=== PATIENT | female | born 1955 | race Caucasian/White ===

== ENCOUNTER 2020-04-26 16:46 | Outpatient (CLI) | payer MEDICARE, SELFPAY ==
--- NOTE | ~2020-04-26 | MM_ITS ---
EXAMINATION: MM screening [facility] BI w joss HISTORY: Screening mammogram TECHNIQUE: Craniocaudal and mediolateral oblique 3-D tomosynthesis images were obtained and synthetic 2-D images were generated. CAD analysis was submitted and interpreted. COMPARISON: 01/25/2019, 01/25/2018, 01/12/2017 BREAST PARENCHYMAL COMPOSITION: There are scattered areas of fibroglandular density. FINDINGS: There is no evidence of suspicious mass, calcification, or architectural distortion to sugg est malignancy in either breast. There has been no suspicious interval change. IMPRESSION: 1. No mammographic evidence of malignancy. 2. Recommend routine screening mammography in one year. BI-RADS Category 1: Negative Reviewed, dictated and finalized at location A.
== END 2020-04-26 16:47 | disposition home or self-care (01) ==
LOC: ANHIMG 16:58
PROVIDERS: PCP Internal Medicine; Visit Provider Internal Medicine
DX: Z12.31 Encounter for screening mammogram for malignant neoplasm of breast (principal)
CPT/HCPCS: 77063; 77067

== ENCOUNTER 2020-08-06 07:51 | Outpatient (CLI) | payer MEDICARE, SELFPAY ==
--- NOTE | 2020-08-06 08:45 | ECG_ITS ---
Measurements Intervals [place] Rate: 59 P: 9 MO: 143 QRS: 76 QRSD: 102 T: 28 QT: 430 QTc: 429 Interpretive Statements SINUS BRADYCARDIA INCOMPLETE RIGHT BUNDLE BRANCH BLOCK BASELINE ARTIFACT- II, III, AVR, AVL, AVF BORDERLINE ECG Electronically Signed On 08-06-2020 9:39:31 CDT by El Dela Cruz D.O.
[2020-08-06 09:27] LABS: Add Urine Microscopic? YES; Appearance Urine Clear (Clear); Basophils Percent Auto 0.4 % (0.2-1.2); Bilirubin Urine Negative (Negative); Blood Urine 1+ (Negative); Color Urine Colorless (Yellow); Eosinophils Absolute Auto 0.1 K/mm3 (0-0.3); Eosinophils Percent Auto 1.1 % (0-4.4); Glucose Urine UA Negative (Negative); Hematocrit 42.7 % (37.0-47.0); Hemoglobin 14.3 g/dL (12.0-15.0); Immature Granulocyte Absolute 0.05 K/mm3 (0.00-0.031); Immature Granulocyte Percent A 0.7 % (0-0.5); Ketones Urine Negative (Negative); Leukocyte Esterase Ur Negative LEU/UL (Negative); Lymphocytes Absolute Auto 2.07 K/mm3 (0.9-3.2); Lymphocytes Percent Auto 28.3 % (18.3-44.2); Mean Corpuscular HGB Conc 33.5 g/dl (32-36); Mean Corpuscular Hemoglobin 31.6 pg (26-34); Mean Corpuscular Volume 94.3 fl (80-100); Mean Platelet Volume 10.1 fl (7.4-10.4); Monocytes Absolute Auto 0.4 K/mm3 (0.1-0.6); Neutrophils Absolute Auto 4.6 K/mm3 (1.3-6.7); Neutrophils Percent Auto 63.5 % (45.5-73.1); Nitrate Urine Negative (Negative); Platelet Count Result 236 k/mm3 (150-375); Protein Urine Negative (Negative); Red Blood Count 4.53 M/mm3 (4.2-5.4); Red Cell Distribution Width 12.5 % (11.5-14.5); Urobilinogen Urine Negative mg/dL (<2.0); White Blood Count 7.3 K/mm3 (4.5-10.0)
[2020-08-06 09:29] LABS: Specific Grav Ur 1.004 (1.001-1.035)
[2020-08-06 09:32] LABS: Urine Cotinine NEGATIVE
[2020-08-06 09:35] LABS: Prothrombin Time 12.6 Seconds (11.1-14.7)
[2020-08-06 09:36] LABS: Partial Thromboplastin Time 26.6 SECONDS (22.3-36.8)
[2020-08-06 09:37] LABS: Albumin Level 4.3 g/dL (3.5-5.1); Anion Gap 4 mmol/L (8-16); Blood Urea Nitrogen 11 mg/dL (7-17); Calcium 9.8 mg/dL (8.4-10.2); Carbon Dioxide 34 mmol/L (22-30); Chloride 105 mmol/L (98-107); Estimated Glomerular Filt Rate > 60; Glucose 103 mg/dL (65-105); Potassium 5.1 mmol/L (3.4-5.0); Sodium 143 mmol/L (137-145)
[2020-08-06 09:40] LABS: Hemoglobin A1C 5.5 % (<5.7)
== END 2020-08-06 07:52 | disposition home or self-care (01) ==
LOC: ANHSURGERY 07:56
PROVIDERS: PCP Internal Medicine; Visit Provider Orthopaedic Surgery
DX: M17.10 Unilateral primary osteoarthritis, unspecified knee (principal); Z01.818 Encounter for other preprocedural examination; Z01.812 Encounter for preprocedural laboratory examination
CPT/HCPCS: 36415; 80048; 80307; 81001; 82040; 83036; 85025; 85610; 85730; 86850; 86900; 86901; 87081; 93005

== ENCOUNTER 2020-08-11 00:45 | Outpatient (CLI) | payer MEDICARE, SELFPAY ==
[2020-08-11 17:59] LABS: SARS-CoV-2 RNA PCR Negative
== END 2020-08-11 00:46 | disposition home or self-care (01) ==
LOC: ANHCOVIDDT 00:47
PROVIDERS: PCP Internal Medicine; Visit Provider Orthopaedic Surgery
DX: Z01.812 Encounter for preprocedural laboratory examination (principal); Z20.828 Contact with and (suspected) exposure to other viral communicable diseases
CPT/HCPCS: 87635; C9803; U0003

== ENCOUNTER 2020-08-15 14:07 | Observation (INO) | payer MEDICARE, SELFPAY ==
[2020-08-06 08:21] VITALS: BP 154/78; PULSE 68; RESP 18; TEMP 36.4; O2SAT 100
[2020-08-06 08:22] VITALS: BMI 21.4
[2020-08-14] VITALS (12 sets, daily range): BP systolic 106–138; BP diastolic 42–78; PULSE 53–75; RESP 10–18; TEMP 36.1–36.8; O2SAT 98–100
--- NOTE | 2020-08-14 07:18 | WPDHPUPDATE1 ---
History and Physical Update Update Date/Time: 08/14/20 07:18 History and Physical has been reviewed, including an updated exam of the patient. There are NO changes in the patient's condition. Risks, benefits, and alternatives have been discussed and questions answered. Patient agrees to proceed with procedure.
--- NOTE | 2020-08-14 08:06 | WPDANESEPPF ---
Anes - Initial Pre Proc Eval Procedure: Operation Date: 08/14/20 10:30 Proposed Procedures p Right Total Knee Arthroplasty - Mikey Begum MD Date/Time: 08/14/20 08:06 Surgeon: Mikey Begum MD Pre Op Diagnosis: Right Knee DJD Patient Data Age: 65 Gender: F Height: 1.56 m Weight: 52.4 kg Last Vital Signs Temp 36.4 C 08/06/20 08:21 Pulse 68 08/06/20 08:21 Resp 18 08/06/20 08:21 BP 154/78 H 08/06/20 08:21 Pulse Ox 100 08/06/20 08:21 Allergies Allergy/AdvReac Type Severity Reaction Status Date / Time No Known Allergies Allergy Verified 08/06/20 13:45 Home Medications Medication Instructions Recorded Confirmed Type alprazolam 0.25 mg tablet 0.25 mg PO TID PRN 07/02/20 08/06/20 History losartan 50 mg tablet 50 mg PO QAM 07/02/20 08/06/20 History chlorhexidine gluconate 4 % 1 applic TOPICAL ONCE #237 ml 07/03/20 08/06/20 Rx topical liquid aspirin [Aspirin Low Dose] 81 mg PO QAM 08/06/20 08/06/20 History calcium carbonate [Calcium 600] 600 mg PO BID 08/06/20 08/06/20 History cholecalciferol (vitamin D3) 50 mcg PO QAM 08/06/20 08/06/20 History zkbumuoa-cqd-rtcx-FA-lutein 1 tablet PO QAM 08/06/20 08/06/20 History [Multivitamin Women 50 Plus] Patient hx anesthesia problems: none Family hx anesthesia problems: none PMFSH Past Medical History Medical History (Updated 08/14/20 @ 08:05 by Arben Lay DO) Anxiety Depression DJD (degenerative joint disease) of knee Hypertension Osteoarthritis Right knee pain Surgical History Surgical History (Updated 08/14/20 @ 08:05 by Arben Lay DO) History of hysterectomy Social History Social History Smoking status: Never smoker Alcohol intake: never Substance use: never Living arrangements: alone Spiritual care concerns: No Anes - Eval Final PreProcedure Day of Procedure 08/14/20 08:06 Patient weight: normal Heart: regular rate and rhythm Lungs: clear to auscultation and normal air movement Airway: Mallampati scale class II Neurological: alert and oriented Last oral intake: >/= 8 hours ASA classification: II Emergent: no Anesthetic plan: proceed Anesthesia type and monitoring: general LMA and standard monitoring Informed Consent: The patient's anesthetic plan and its attendant risks and benefits were discussed with the patient/family/POA. Questions were solicited and answers provided to the satisfaction of the patient/family/POA.
--- NOTE | 2020-08-14 08:06 | WPDANESPNB ---
Anes - Peripheral Nerve Block Date/Time: 08/14/20 08:06 I have discussed with the patient/family/POA the placement of a peripheral nerve block for post-operative pain management, including associated risks, benefits, complications, and side effects. Alternative methods of post-operative analgesia were detailed. Questions were solicited and answers provided to the satisfaction of the patient/family/POA. Time-Out: A pre-procedural Time-Out was completed immediately before starting the procedure and confirmed: Patient Identification, Site, Procedure, Patient Position and the Availability of Requisite Equipment. Clinical Indications: Acute post-operative pain management requested by the operative surgeon. Nerve Block Insertion Note Anes-nerve block: femoral right Patient position: supine Skin prep: chlorhexidine Needle: 22 gauge, stimulating, insulated echogenic needle. Needle length: 80 mm Technique: nerve stimulation lost at (mA) (0.3) and ultrasound Injectate: bupivacaine 0.5% with epi 5 mcg/ml (30cc) Observations: tolerated well Complications: none Procedure start time:: 1011 Procedure end time:: 1014
[2020-08-14] MEDS: LACTATED RINGERS 1,000 ML 30 ML IV CONT ×2 (09:02→12:02)
[2020-08-14] MEDS: KETOROLAC 15 MG/ML VIAL (*BKC) IV PUSH (09:03)
[2020-08-14] MEDS: ACETAMINOPHEN 500 MG TABLET 1000 MG PO (09:03)
[2020-08-14] MEDS: TRANEXAMIC ACID 1,000MG/ISO100 1,000 MG/100 ML BAG 200 MG IVPB (09:03)
[2020-08-14] MEDS: ceFAZolin 2 GM/D5W 50 ML 2 GM/50 ML BAG IVPB ×2 (10:23→18:51)
[2020-08-14] MEDS: TRANEXAMIC ACID 1,000 MG/10 ML AMPUL 1000 MG IV PUSH (11:29)
--- NOTE | 2020-08-14 11:58 | PM.PROC ---
Procedure Note - Detailed Date of procedure: 08/14/20 Pre-op diagnosis: Right Knee DJD Post-op diagnosis: same Procedure performed: R TKA Description of procedure: THE RIGHT KNEE WAS PREPPED AND DRAPED IN THE STERILE FASHION. A MIDLINE SKIN INCISION WAS MADE. A MEDIAL PARAPATELLAR ARTHROTOMY WAS MADE. THE PATELLA WAS EVERTED. THERE WAS TRICOMPARTMENT DJD. THERE WAS MINIMAL PATELLA DJD. AN INTRAMEDULLARY PINA WAS PLACED IN THE FEMUR. A DISTAL FEMORAL CUT WAS MADE IN 5 DEGREES OF VALGUS REMOVING APPROXIMATELY 9 MM OF BONE FROM THE DISTAL FEMUR. THE FEMUR WAS SIZED TO 60. A 60 FEMORAL CUTTING BLOCK WAS PLACED IN 3 DEGREES OF EXTERNAL ROTATION AND IN ALIGNMENT WITH ROMEO'S LINE AND THE TRANSEPICONDYLAR AXIS. ANTERIOR POSTERIOR AND CHAMFER CUTS WERE MADE. THE CUTS WERE EXCELLENT. NEXT AN INTRAMEDULLARY CUTTING GUIDE WAS PLACED IN THE TIBIA. A TRANS TIBIAL CUT WAS MADE ALONG THE LONG AXIS OF THE TIBIA. APPROXIMATELY 10 MM OF BONE WAS REMOVED FROM THE HIGH SIDE OF THE TIBIA. THE TIBIA WAS THEN PLANED TO A SMOOTH SURFACE. POSTERIOR FEMORAL OSTEOPHYTES WERE REMOVED FROM THE FEMORAL CONDYLES. A 71 TIBIAL TRIAL WAS PLACED IN ALIGNMENT WITH THE 1/3 MEDIAL ASPECT OF THE TIBIAL TUBERCLE. THEN A 60 FEMORAL TRIAL COMPONENT WAS PLACED. BOTH HAD EXCELLENT FITS. EVENTUALLY A 10 MM POLYETHYLENE TRIAL COMPONENT WAS PLACED. THE KNEE WAS TAKEN THROUGH A RANGE OF MOTION. THE KNEE CAME OUT TO FULL EXTENSION. THERE WAS NO ABNORMAL TILT TO THE PATELLA. THERE WAS GOOD A/P AND VARUS/VALGUS STABILITY. THERE WAS NO EXCESSIVE ROLL BACK WITH FLEXION. THE TRIAL COMPONENTS WERE REMOVED. THEN A 60 FEMORAL COMPONENT AND 71 TIBIAL COMPONENT WITH A 10 CR POLYETHYLENE COMPONENT WERE CEMENTED INTO PLACE. THE KNEE WAS TAKEN THROUGH A ROM AGAIN AND FOUND TO BE STABLE WITH NO PATELLA TILT NO EXCESSIVE ROLL BACK WITH FLEXION AND GOOD STABILITY WITH COMPLETE AND FULL EXTENSION. THE KNEE WAS IRRIGATED WITH STERILE BETADINE AND WATER FOR ABOUT 3 MINUTES. THE BLEEDERS WERE CAUTERIZED. THE ARTHROTOMY WAS REPAIRED WITH NUMBER 1 VICRYL. THE SUB CUTANEOUS LAYER WITH 2-0 VICRYL AND THE SKIN WITH ERIN. THE WOUND WAS WASHED AND A STERILE DRESSING WAS APPLIED. PATIENT WAS EXTUBATED. Anesthesia: GETA Surgeon: Mikey Begum MD Estimated blood loss (mL): 100 Complications: No immediate complications Condition: stable Disposition: PACU
--- NOTE | 2020-08-14 12:19 | SUR.PHASEI ---
1210 xrays of right knee done.
[2020-08-14] MEDS: ONDANSETRON INJ 4 MG/2 ML VIAL IV PUSH (15:18)
[2020-08-14] MEDS: HYDROcodone/acetaminophen (*CRX) 5-325 MG TABLET 1 TAB PO (16:17)
[2020-08-14] MEDS: CELECOXIB 200 MG CAPSULE PO (18:51)
[2020-08-14] MEDS: DOCUSATE SODIUM 100 MG CAPSULE PO (18:51)
[2020-08-14] MEDS: CALCIUM CARBONATE (OSCAL) 500 MG TABLET PO (18:51)
[2020-08-14] MEDS: ASPIRIN 325 MG ENTERIC TABLET PO (20:38)
[2020-08-14] MEDS: FAMOTIDINE 20 MG TABLET PO (20:38)
--- NOTE | ~2020-08-15 | XR_ITS ---
XR knee RT 2V DATE: 08/14/2020 12:12 INDICATION: Right total knee replacement TECHNIQUE: AP and lateral views COMPARISON: 07/02/2020 bilateral knees FINDINGS: Skin madhu are noted anteriorly. There is subcutaneous and intra-articular emphysema asso ciated with right knee arthroplasty without patellar resurfacing. No fracture or dislocation. IMPRESSION: Postoperative change from right knee arthroplasty Reviewed, dictated and finalized at location A.
[2020-08-15 02:00] VITALS: BP 136/66; PULSE 61; RESP 16; TEMP 36.2; O2SAT 96
[2020-08-15] MEDS: ceFAZolin 2 GM/D5W 50 ML 2 GM/50 ML BAG IVPB ×2 (03:00→09:26)
[2020-08-15 05:50] VITALS: BP 115/53; PULSE 65; RESP 16; TEMP 36.3; O2SAT 99
[2020-08-15 06:29] LABS: Basophils Percent Auto 0.2 % (0.2-1.2); Hematocrit 31.6 % (37.0-47.0); Hemoglobin 10.8 g/dL (12.0-15.0); Immature Granulocyte Absolute 0.13 K/mm3 (0.00-0.031); Immature Granulocyte Percent A 0.8 % (0-0.5); Lymphocytes Absolute Auto 1.83 K/mm3 (0.9-3.2); Lymphocytes Percent Auto 11.1 % (18.3-44.2); Mean Corpuscular HGB Conc 34.2 g/dl (32-36); Mean Corpuscular Hemoglobin 31.7 pg (26-34); Mean Corpuscular Volume 92.7 fl (80-100); Mean Platelet Volume 10.2 fl (7.4-10.4); Monocytes Percent Auto 5.9 % (2.6-8.5); Neutrophils Absolute Auto 13.5 K/mm3 (1.3-6.7); Platelet Count Result 183 k/mm3 (150-375); Red Blood Count 3.41 M/mm3 (4.2-5.4); Red Cell Distribution Width 12.3 % (11.5-14.5); White Blood Count 16.5 K/mm3 (4.5-10.0)
[2020-08-15 06:43] LABS: Anion Gap 5 mmol/L (8-16); Blood Urea Nitrogen 13 mg/dL (7-17); Calcium 8.7 mg/dL (8.4-10.2); Carbon Dioxide 29 mmol/L (22-30); Chloride 98 mmol/L (98-107); Estimated CRCL calculation 47 ml/min; Estimated Glomerular Filt Rate > 60; Glucose 117 mg/dL (65-105); Potassium 4.4 mmol/L (3.4-5.0); Sodium 132 mmol/L (137-145)
[2020-08-15] MEDS: ONDANSETRON INJ 4 MG/2 ML VIAL IV PUSH ×2 (07:47→13:28)
[2020-08-15] MEDS: ALPRAZolam (*CRX) 0.25 MG TABLET PO (07:48)
[2020-08-15] MEDS: DOCUSATE SODIUM 100 MG CAPSULE PO (07:51)
[2020-08-15] MEDS: CALCIUM CARBONATE (OSCAL) 500 MG TABLET PO (07:51)
[2020-08-15] MEDS: ASPIRIN 325 MG ENTERIC TABLET PO ×2 (07:51→21:09)
[2020-08-15] MEDS: CELECOXIB 200 MG CAPSULE PO (07:51)
[2020-08-15] MEDS: LOSARTAN POTASSIUM 50 MG TABLET PO (07:52)
[2020-08-15] MEDS: FAMOTIDINE 20 MG TABLET PO ×2 (07:52→21:09)
--- NOTE | 2020-08-15 08:40 | WPDANESPN ---
Anes - Prog Note Post-Op Date/Time: 08/15/20 08:40 Cardiovascular status: normal Respiratory status: normal Airway patency: baseline Mental status: baseline Post-Op hydration status: normal Vital Signs: Last Vital Signs Temp 36.3 C L 08/15/20 05:50 Pulse 65 08/15/20 05:50 Resp 16 08/15/20 05:50 BP 115/53 L 08/15/20 05:50 Pulse Ox 99 08/15/20 05:50 Pain Score (VAS): 0 I/O: Intake & Output 08/14/20 08/15/20 08/15/20 23:59 07:59 15:59 Intake Total 420 200 Balance 420 200 Laboratory Tests 08/15/20 06:07 08/15/20 06:07 08/14/20 08/15/20 08/15/20 09:01 06:07 06:07 WBC 16.5 H RBC 3.41 L Hgb 10.8 L D Hct 31.6 L MCV 92.7 MCH 31.7 MCHC 34.2 RDW 12.3 Plt Count 183 MPV 10.2 Immature Gran % (Auto) 0.8 H Neut % (Auto) 82.0 H Lymph % (Auto) 11.1 L [place] % (Auto) 5.9 Eos % (Auto) 0.0 Baso % (Auto) 0.2 Lymph # (Auto) 1.83 [place] # (Auto) 1.0 H Eos # (Auto) 0.0 Baso # (Auto) 0.0 Abs Immat Gran (auto) 0.13 H Absolute Neuts (auto) 13.5 H Absolute Nucleated RBC 0.0 Nucleated RBC % 0.0 Sodium 132 L Potassium 4.4 Chloride 98 Carbon Dioxide 29 Anion Gap 5 L BUN 13 Creatinine 0.80 Estim Creat Clear Calc 47 Estimated GFR > 60 Glucose 117 H Calcium 8.7 Blood Type A Positive Antibody Screen Negative Post-procedural complaints: none Patient Feedback: Patient satisfied with anesthetic care.
[2020-08-15] MEDS: HYDROcodone/acetaminophen (*CRX) 5-325 MG TABLET 1 TAB PO ×2 (09:27→22:48)
[2020-08-15 10:00] VITALS: BP 97/50; PULSE 68; RESP 18; TEMP 36.9; O2SAT 100
[2020-08-15 10:15] VITALS: O2SAT 96
[2020-08-15] MEDS: MORPHINE SULFATE (*CRX) 4 MG/ML INJ IV PUSH (10:39)
--- NOTE | 2020-08-15 13:57 | PM.PNORT ---
Progress Note: A&P Additional Plan POD 1 WITH NIKOLE. WILL REVALUATE TMRW FOR DC Subjective Subjective Date/Time Seen: 08/15/20 13:57POD 1 BLOCK STILL WORKING. HAVING NAUSEA WHEN GETS UP OUT OF BED. NO CALF PAIN OR SOB OR CP Exam Extrem: Other: VSS AFEBRILE DRESSING DRY NV INTACT NEG HOMANS SIGN Objective Data Vital Signs Vital Signs: Vital Signs - 24 hr 08/14/20 14:15 08/14/20 15:15 08/14/20 22:00 Temperature 36.3 C L 36.3 C L 36.8 C Pulse Rate 53 L 58 L 65 Respiratory Rate 12 16 16 Blood Pressure 114/57 L 106/42 L 124/66 Pulse Oximetry 100 100 100 08/15/20 02:00 08/15/20 05:50 08/15/20 10:00 Temperature 36.2 C L 36.3 C L 36.9 C Pulse Rate 61 65 68 Respiratory Rate 16 16 18 Blood Pressure 136/66 115/53 L 97/50 L Pulse Oximetry 96 99 100 08/15/20 10:15 Temperature Pulse Rate Respiratory Rate Blood Pressure Pulse Oximetry 96 Intake/Output Intake/Output: Intake & Output 08/12/20 08/13/20 08/14/20 08/15/20 23:59 23:59 23:59 23:59 Intake Total 770 250 Balance 770 250 Meds/Results Medications: Active Medications Generic Name Dose Route Start Last Admin Trade Name Freq PRN Reason Stop Dose Admin Acetaminophen 1,000 mg 08/14/20 13:24 Tylenol Tablet PO Q6H PRN Mild Pain (1-3) Hydrocodone Bitart/Acetaminophen 1 tab 08/14/20 13:24 08/15/20 09:27 [place] 5-325 Mg PO 1 tab Q4H PRN Administration Moderate Pain (4-6) Alprazolam 0.25 mg 08/14/20 13:24 08/15/20 07:48 Xanax PO 0.25 mg TID PRN Administration Anxiety Aspirin 325 mg 08/14/20 21:00 08/15/20 07:51 Aspirin Ec PO 325 mg Q12HR RAFI Administration Calcium Carbonate 500 mg 08/14/20 17:00 08/15/20 07:51 Oscal 500 Mg PO 09/13/20 17:01 500 mg BID RAFI Administration Celecoxib 200 mg 08/14/20 17:00 08/15/20 07:51 Celebrex PO 200 mg BIDWM RAFI Administration Diphenhydramine HCl 25 mg 08/14/20 13:24 Benadryl Inj IV PUSH Q6H PRN Itching Docusate Sodium 100 mg 08/14/20 17:00 08/15/20 07:51 Colace Capsule PO 100 mg BID RAFI Administration Famotidine 20 mg 08/14/20 21:00 08/15/20 07:52 Pepcid PO 20 mg Q12HR RAFI Administration Losartan Potassium 50 mg 08/15/20 09:00 08/15/20 07:52 Cozaar PO 50 mg QAM RAFI Administration Morphine Sulfate 4 mg 08/14/20 13:24 08/15/20 10:39 Morphine Sulfate Inj (*Crx) IV PUSH 4 mg Q2H PRN Administration Breakthrough pain rated 7-10 Naloxone HCl 0.1 mg 08/14/20 13:24 Narcan IV PUSH Q2M PRN Opiate Reversal Ondansetron HCl 4 mg 08/14/20 15:07 08/15/20 13:28 Zofran Inj IV PUSH 4 mg Q4H PRN Administration Nausea And Vomiting Radiology Results: ITS Impressions Knee X-Ray 08/14/20 12:27 IMPRESSION: Postoperative change from right knee arthroplasty Labs Labs: Laboratory Results - last 24 hr 08/15/20 08/15/20 06:07 06:07 WBC 16.5 H RBC 3.41 L Hgb 10.8 L D Hct 31.6 L MCV 92.7 MCH 31.7 MCHC 34.2 RDW 12.3 Plt Count 183 MPV 10.2 Immature Gran % (Auto) 0.8 H Neut % (Auto) 82.0 H Lymph % (Auto) 11.1 L [place] % (Auto) 5.9 Eos % (Auto) 0.0 Baso % (Auto) 0.2 Lymph # (Auto) 1.83 [place] # (Auto) 1.0 H Eos # (Auto) 0.0 Baso # (Auto) 0.0 Abs Immat Gran (auto) 0.13 H Absolute Neuts (auto) 13.5 H Absolute Nucleated RBC 0.0 Nucleated RBC % 0.0 Sodium 132 L Potassium 4.4 Chloride 98 Carbon Dioxide 29 Anion Gap 5 L BUN 13 Creatinine 0.80 Estim Creat Clear Calc 47 Estimated GFR > 60 Glucose 117 H Calcium 8.7
[2020-08-15 14:00] VITALS: BP 127/58; PULSE 62; RESP 18; TEMP 36.7; O2SAT 100
[2020-08-15] MEDS: DEXTROSE 5%/0.45% SOD CHL 1,000 ML 125 ML IV CONT (16:57)
[2020-08-15 22:00] VITALS: BP 105/50; PULSE 71; RESP 16; TEMP 37.1; O2SAT 100
[2020-08-16 02:00] VITALS: BP 132/49; PULSE 65; RESP 16; TEMP 36.8; O2SAT 98
[2020-08-16] MEDS: DEXTROSE 5%/0.45% SOD CHL 1,000 ML 125 ML IV CONT (02:30)
[2020-08-16] MEDS: ONDANSETRON INJ 4 MG/2 ML VIAL IV PUSH ×2 (05:23→10:41)
[2020-08-16] MEDS: HYDROcodone/acetaminophen (*CRX) 5-325 MG TABLET 1 TAB PO (05:43)
[2020-08-16 06:00] VITALS: BP 130/67; PULSE 63; RESP 16; TEMP 36.8; O2SAT 99
--- NOTE | 2020-08-16 09:08 | PM.PNORT ---
Progress Note: A&P Assessment and Plan (1) DJD (degenerative joint disease) of knee: Qualifiers: Osteoarthritis type: primary Laterality: bilateral Qualified Code(s): M17.0 - Bilateral primary osteoarthritis of knee Code(s): M17.10 - Unilateral primary osteoarthritis, unspecified knee Status: Acute Assessment and Plan: POD #1: RIGHT TKA Continue PT/OT. WBAT. Walker. HIGH FALL RISK. Continue pain control. Ice Knee. No pillows under knee. DVT prophylaxis. Incentive spirometry. SCDs. Dressing changed today. Dispo: Home with home health pending progress with PT/OT. (2) Nausea after anesthesia: Qualifiers: Encounter type: initial encounter Qualified Code(s): T88.59XA - Other complications of anesthesia, initial encounter; R11.0 - Nausea Code(s): T88.59XA - Other complications of anesthesia, initial encounter; R11.0 - Nausea Status: Acute Assessment and Plan: Patient with nausea post anesthesia. Mild improvement today. Continue antiemetic. Changes to pain medication regimen as well due to possible concerns of nausea from [place]. (3) Anxiety: Code(s): F41.9 - Anxiety disorder, unspecified Status: Acute Assessment and Plan: Patient currently on alprazolam TID for anxiety. Also complaining of muscle spasms. Discussed with Dr. Begum. Decrease PRN xanax at this time. Add valium for muscle spasms. Subjective Subjective Date/Time Seen: 08/16/20 09:08 Post Op day: 2 Principal diagnosis: Right TKA Interval history: POD #2 RIght TKA Complaints of continued nausea. No vomiting today. Feels she is having difficulty tolerating current pain medication in regards to nausea. Now able to move leg better. Complaints of spasming as well. Review of Systems Review of Systems: All systems reviewed & are unremarkable except as noted in HPI and below Constitutional: Constitutional: Reports as per HPI, Denies chills, Denies fatigue, Denies fever(s) and Denies weakness Respiratory: Respiratory: Denies cough and Denies wheezing Gastrointestinal: Gastrointestinal: Denies constipation, Denies diarrhea, Reports nausea and Denies vomiting Genitourinary: Genitourinary: Denies dysuria Musculoskeletal: Musculoskeletal: Reports arthralgias (right knee ), Reports joint swelling (right knee ), Denies numbness and Denies tingling Integumentary/Breasts: Skin/Breast: Reports other (incision right knee c/d/i. ) Exam Const: General: comfortable and no acute distress Resp: Effort & Inspection: normal respiratory effort Cardio: Rate: regular rate Rhythm: regular rhythm GI: GI Palp: Yes Soft to palpation, No Tenderness to palpation present (GI) and No Guarding due to palpation present (GI) Skin: Wounds: wounds noted Other: Incision c/d/i. No surrounding redness/warmth. No hematoma. Mild ecchymosis. No wound dehiscence Neuro: Cognition (Neuro): normal cognition Extrem: Right upper extremity: normal to inspection, full ROM and normal capillary refill Left upper extremity: normal to inspection, full ROM and normal capillary refill Right lower extremity: normal to inspection, full ROM (ROM limited due to recent surgical intervention ), knee Details: tenderness (diffuse, mild ) and swelling (diffuse, mild ), lower leg (Negative Mando's Sign ), ankle (+ankle dorsiflexion/plantarflexion ) and foot (2+ pedal pulses. Sensation intact to light touch. ) Left lower extremity: normal to inspection Psych: Mental Status: mental status grossly normal Objective Data Vital Signs Vital Signs: Vital Signs - 24 hr 08/15/20 10:00 08/15/20 10:15 08/15/20 14:00 Temperature 36.9 C 36.7 C Pulse Rate 68 62 Respiratory Rate 18 18 Blood Pressure 97/50 L 127/58 L Pulse Oximetry 100 96 100 08/15/20 22:00 08/16/20 02:00 08/16/20 06:00 Temperature 37.1 C 36.8 C 36.8 C Pulse Rate 71 65 63 Respiratory Rate 16 16 16 Blood Pressure 105/50 L 132/49 L 130/67 Pulse Oximetry 100
[2020-08-16 10:00] VITALS: BP 131/59; PULSE 68; RESP 17; TEMP 36.9; O2SAT 98
[2020-08-16] MEDS: oxyCODONE/ACETAMINOPHEN (*CRX) 5-325 MG TABLET 1 TABLET PO ×2 (10:41→16:04)
[2020-08-16] MEDS: diazePAM (*CRX) 5 MG TABLET PO (10:41)
--- NOTE | 2020-09-10 08:06 | PM.DS ---
DS: Admitting Diagnosis Admitting Diagnosis Admitting Diagnosis: Right Knee DJD DS: Discharge Diagnosis Discharge Diagnosis (1) DJD (degenerative joint disease) of knee: Qualifiers: Osteoarthritis type: primary Laterality: bilateral Qualified Code(s): M17.0 - Bilateral primary osteoarthritis of knee Code(s): M17.10 - Unilateral primary osteoarthritis, unspecified knee Status: Acute Assessment and Plan: POD #2: RIGHT TKA Continue PT/OT. WBAT. Walker. HIGH FALL RISK. Continue pain control. Ice Knee. No pillows under knee. DVT prophylaxis. Incentive spirometry. SCDs. Dressing changed today. Dispo: Home with home health pending progress with PT/OT. (2) Nausea after anesthesia: Qualifiers: Encounter type: initial encounter Qualified Code(s): T88.59XA - Other complications of anesthesia, initial encounter; R11.0 - Nausea Code(s): T88.59XA - Other complications of anesthesia, initial encounter; R11.0 - Nausea Status: Acute Assessment and Plan: Patient with nausea post anesthesia. Mild improvement today. Continue antiemetic. Changes to pain medication regimen as well due to possible concerns of nausea from [place]. (3) Anxiety: Code(s): F41.9 - Anxiety disorder, unspecified Status: Acute Assessment and Plan: Patient currently on alprazolam TID for anxiety. Also complaining of muscle spasms. Discussed with Dr. Begum. Decrease PRN xanax at this time. Add valium for muscle spasms. DS: Summary Hospital Course Reason for hospitalization: Right Knee DJD Hospital Course: 65-year-old female admitted status post right total knee replacement for postoperative medical management, pain control and physical/occupational therapy. The patient progressed well with PT and OT and was deemed safe to be discharged home with home health. She did have a bout of nausea postoperatively which is controlled with antiemetics. She also had some muscle spasming requiring Valium. We did decrease her Xanax in the interim. She will follow up in our office outpatient. We will transition her to outpatient physical therapy at that time. Her dressing was changed prior to discharge. She was sent home upon additional dressing which will be changed in 5 days by the home health RN. Her madhu were removed on the 14th day after surgery and Steri-Strips will be placed. The patient verbalized understanding and agrees with discharge at this time. Status at Discharge Cognitive/behavioral status at discharge: Stable Functional status at discharge: uses cane/walker Overall status at discharge: patient is progressing back to baseline Time Spent with Patient Time attestation: Total time spent providing and/or coordinating discharge services: Exam Const: General: comfortable and no acute distress Resp: Effort & Inspection: normal respiratory effort Cardio: Rate: regular rate Rhythm: regular rhythm GI: GI Palp: Yes Soft to palpation, No Tenderness to palpation present (GI) and No Guarding due to palpation present (GI) Skin: Wounds: wounds noted Other: Incision c/d/i. No surrounding redness/warmth. No hematoma. Mild ecchymosis. No wound dehiscence Neuro: Cognition (Neuro): normal cognition Extrem: Right upper extremity: normal to inspection, full ROM and normal capillary refill Left upper extremity: normal to inspection, full ROM and normal capillary refill Right lower extremity: normal to inspection, full ROM (ROM limited due to recent surgical intervention ), knee Details: tenderness (diffuse, mild ) and swelling (diffuse, mild ), lower leg (Negative Mando's Sign ), ankle (+ankle dorsiflexion/plantarflexion ) and foot (2+ pedal pulses. Sensation intact to light touch. ) Left lower extremity: normal to inspection Psych: Mental Status: mental status grossly normal Discharge Plan Discharge Attending physician on discharge: Mikey Begum Consulting providers: Damian Lewis
== END 2020-08-16 16:23 | disposition home health service (06) ==
LOC: ANHSURGERY 14:09 → ANH2MED 14:10
PROVIDERS: Admitting Provider Orthopaedic Surgery; PCP Internal Medicine; Visit Provider Orthopaedic Surgery
PROC: (CPT 27447; principal; 2020-08-14 10:30)
DX: M17.11 Unilateral primary osteoarthritis, right knee (principal); G89.18 Other acute postprocedural pain; I10 Essential (primary) hypertension; F41.9 Anxiety disorder, unspecified
CPT/HCPCS: 27447; 64447; 36415; 73560; 80048; 85025; 86850; 86900; 86901; 97110; 97116; 97161; 97165; 97530; 97535; A9270; C1713; C1776; G0378; J0171; J0690; J1100; J1885; J2250; J2270; J2370; J2405; J2704; J2795; J3010; J7120

== ENCOUNTER 2020-09-26 10:00 | Outpatient (RCR) | payer MEDICARE, SELFPAY ==
--- NOTE | 2020-09-05 09:59 | PTOPEVAL ---
PHYSICAL THERAPY EVALUATION and PLAN OF CARE Thank you for referring Neela Montalvo to [facility].? Neela is scheduled to be seen for physical therapy? 2x/week for 4 weeks. Please review, sign, date and return this plan of care SHADI. I agree with and certify that the following plan of care is medically necessary. Referring Physician Date Admitting Provider: Attending Provider: Mikey Begum MD Referring Provider: *PT Outpatient Evaluation Start: 09/05/20 08:30 Freq: Status: Active Protocol: Document 09/05/20 08:30 GIANNA (Rec: 09/05/20 09:58 GIANNA [id number]) Therapy Assessment Status Assessment Status Assessment Status Evaluation Outpatient Past Medical History Past Medical History Source of Past Medical History Recalled from Previous Visit, Confirmed with Patient/Family Neurological History Hx Neurological Disorders No Significant History Cardiovascular History Hx Hypertension Yes Hx Other Cardiac Disorders Yes: DENIES CARDIAC SYMPTOMS - WALKS 1-3 MILES DAILY Respiratory History Hx Respiratory Disorders No Significant History Gastrointestinal History Hx Other Gastrointestinal Disorders Yes: NORMAL COLONOSCOPY 2018 Genitourinary History Hx Bladder Surgery Yes: BLADDER PROLAPSE REPAIR WITH HYSTERECTOMY 07/14/2012 Musculoskeletal History Hx Arthritis Yes: KNEES, NECK Hx Joint Replacement Yes: R TKA 08/14/2020 Hematological History Hx Hematological Disorders No Significant History Endocrine History Hx Endocrine Disorders No Significant History HEENT History Hx Other HEENT Disorders Yes: GLASSES/CONTACTS Integumentary History Hx Shingles Yes: MAY 2012 RT SHOULDER/ NECK Reproductive History Hx Hysterectomy Yes: 07/14/2012 Hx Other Reproductive Disorders Yes: NORMAL MAMMOGRAM 2019 Psychosocial History Hx Anxiety Yes Hx Depression Yes Hx Recent Lifestyle Changes Yes: SPOUSE PASSED OCT 2019 Pain History History of Any Previous or Ongoing No Significant History Instance of Pain Anesthesia History Hx Anesthesia Reactions No Significant History Evaluation Information Problem Diagnosis s/p R TKA Onset 08/14/2020 Subjective Information Hospitalized - 2 nights - Query Text:As Reported By Patient/ rough reaction to anesthia and Family pain meds. Daughter home afterwards - then home health. Doesn't have CPM anymore. Sleeping - does well until 3 a
--- NOTE | 2020-09-26 16:25 | PTOPEVAL ---
PHYSICAL THERAPY DISCHARGE SUMMARY Thank you for referring Neela Montalvo to [facility].? Neela was seen in PT x 8 visits. She has met all goals set with exception of full knee extension. She is to continue with her HEP and emphasize full knee extension with stance aspect of gait. I agree with Neela's discharge from physical therapy. Referring Physician Date Admitting Provider: Attending Provider: Mikey Begum MD Referring Provider: *PT Outpatient Evaluation Start: 09/05/20 08:30 Freq: Status: Active Protocol: Document 09/26/20 09:58 GIANNA (Rec: 09/26/20 11:10 GIANNA [id number]) Therapy Assessment Status Assessment Status Assessment Status Discharge Evaluation Information Problem Subjective Information Neela reports that her knee is Query Text:As Reported By Patient/ feeling good - some muscular Family discomforts. Ready to return back to some of her work next week. No problem with stair ambulation at home. Limiting outside mobility due to COVID situation in the community. Pain Assessment Timing of Pain Assessment Timing of Pain Assessment Assessment Pain Scale Pain Scale Used Numeric (1 - 10) Self Report Pain Assessment Right Knee(s) Reported Pain Level 0 Lowest Pain Intensity 0 Greatest Pain Intensity 1 Pain Score Pain Score 0: Self Report Lower Extremity Range of Motion Knee Range of Motion Right Knee Flexion Range of Motion - Active 135 Knee Extension Range of Motion - Active 2 Query Text: Lower Extremity Muscle Strength Testing Hip Strength Right Hip Flexion Strength 5 Normal Hip Extension Strength 5 Normal Hip Abduction Strength 4+ Good + Hip Medial Rotation Strength 5 Normal Hip Lateral Rotation Strength 5 Normal Knee Strength Right Knee Flexion Strength 5 Normal Knee Extension Strength 5 Normal Palpation Assessment Palpation Palpation Good patellar and incisional mobility present. Extremity Circumference Assessment Circumference Assessment Location Right Body Part Knee Circumference Comments 35.5 cm - mid patellar Balance Assessment Time Up Go (TUG) Assistive Devices None Comments 8.09 sec Gait Assessment Gait Pattern Assessment Other Gait Observations improved R knee extension in stance phase, symmetrical step length, stance and swing phases Stair Climbing Assessment Stair Climbing Assessment Stair C
== END 2020-11-05 15:25 | disposition home or self-care (01) ==
LOC: ANHHIPT 10:00
PROVIDERS: PCP Internal Medicine; Visit Provider Orthopaedic Surgery
DX: Z47.1 Aftercare following joint replacement surgery (principal); Z96.651 Presence of right artificial knee joint
CPT/HCPCS: 97110; 97161

== ENCOUNTER 2022-08-09 07:36 | Outpatient (CLI) | payer MEDICARE, SELFPAY ==
--- NOTE | ~2022-08-09 | MM_ITS ---
EXAMINATION: MM screening [facility] BI w joss HISTORY: Screening mammogram TECHNIQUE: Craniocaudal and mediolateral oblique 3-D tomosynthesis images were obtained and synthetic 2-D images were generated. CAD analysis was submitted and interpreted. COMPARISON: 04/26/2020, 01/25/2019, 01/15/2018 BREAST PARENCHYMAL COMPOSITION: There are scattered areas of fibroglandular density. FINDINGS: There is no suspicious mass, calcification, or architectural distortion to suggest malignan cy in either breast. There has been no suspicious interval change. IMPRESSION: 1. No mammographic evidence of malignancy. 2. Recommend routine screening mammography in one year. BI-RADS Category 1: Negative Reviewed, dictated and finalized at location A.
== END 2022-08-09 07:37 | disposition home or self-care (01) ==
PROVIDERS: PCP Physician Assistant Medical; Visit Provider Physician Assistant Medical
DX: Z12.31 Encounter for screening mammogram for malignant neoplasm of breast (principal)
CPT/HCPCS: 77063; 77067

== ENCOUNTER 2023-08-27 14:00 | Outpatient (CLI) | payer MEDICARE, SELFPAY ==
--- NOTE | ~2023-08-27 | MM_ITS ---
EXAMINATION: MM screening [facility] BI w joss HISTORY: Screening TECHNIQUE: Craniocaudal and mediolateral oblique 3-D tomosynthesis images were obtained and synthetic 2-D images were generated. CAD analysis was submitted and interpreted. COMPARISON: Comparison to multiple prior studies sequentially, with oldest reviewed study dated 12/28/2015. BREAST PARENCHYMAL COMPOSITION: There are scattered areas of fibroglandular density. FINDINGS: There is no evidence of suspicious mass, calcification, or architectural distortion to sugg est malignancy in either breast. There has been no suspicious interval change. IMPRESSION: 1. No mammographic evidence of malignancy. 2. Recommend routine screening mammography in one year. BI-RADS Category 1: Negative Reviewed, dictated and finalized at location A.
== END 2023-08-27 14:01 | disposition home or self-care (01) ==
PROVIDERS: PCP Physician Assistant Medical; Visit Provider Physician Assistant Medical
DX: Z12.31 Encounter for screening mammogram for malignant neoplasm of breast (principal)
CPT/HCPCS: 77063; 77067

== ENCOUNTER 2023-10-05 12:17 | Outpatient (CLI) | payer MEDICARE, SELFPAY ==
--- NOTE | 2023-10-05 12:31 | ECG_ITS ---
Measurements Intervals [place] Rate: 58 P: 49 CO: 143 QRS: -18 QRSD: 104 T: 30 QT: 415 QTc: 409 Interpretive Statements SINUS BRADYCARDIA INCOMPLETE RIGHT BUNDLE BRANCH BLOCK BASELINE ARTIFACT- I, II, III, AVF BORDERLINE ECG COMPARED TO ECG 08/06/2020 09:21:50 NO SIGNIFICANT CHANGES Electronically Signed On 10-05-2023 13:04:41 SENIOR COUNSEL by El Dela Cruz D.O.
[2023-10-05 13:14] LABS: Appearance Urine Clear (Clear); Bilirubin Urine Negative (Negative); Blood Urine Negative (Negative); Color Urine Yellow (Yellow); Glucose Urine UA Negative (Negative); Ketones Urine Negative (Negative); Leukocyte Esterase Ur Negative LEU/UL (Negative); Nitrate Urine Negative (Negative); Protein Urine Negative (Negative); Specific Grav Ur 1.013 (1.001-1.035); Urobilinogen Urine 0.2 mg/dL (<2.0); pH Urine 7.5 (5.0-9.0)
[2023-10-05 13:42] LABS: Add Urine Microscopic? NO
== END 2023-10-05 12:18 | disposition home or self-care (01) ==
PROVIDERS: PCP Physician Assistant Medical; Visit Provider Orthopaedic Surgery
DX: M17.12 Unilateral primary osteoarthritis, left knee (principal); I10 Essential (primary) hypertension; I45.10 Unspecified right bundle-branch block
CPT/HCPCS: 81003; 93005

== ENCOUNTER 2023-11-19 13:44 | Outpatient (CLI) | payer MEDICARE, SELFPAY ==
[2023-11-19 15:31] LABS: Basophils Percent Auto 0.3 % (0.2-1.2); Eosinophils Absolute Auto 0.1 K/mm3 (0-0.3); Eosinophils Percent Auto 1.4 % (0-4.4); Hematocrit 39.9 % (37.0-47.0); Hemoglobin 12.9 g/dL (12.0-15.0); Immature Granulocyte Absolute 0.01 K/mm3 (0.00-0.031); Immature Granulocyte Percent A 0.1 % (0-0.5); Lymphocytes Absolute Auto 2.81 K/mm3 (0.9-3.2); Lymphocytes Percent Auto 40.5 % (18.3-44.2); Mean Corpuscular HGB Conc 32.3 g/dl (32-36); Mean Corpuscular Hemoglobin 31.5 pg (26-34); Mean Corpuscular Volume 97.6 fl (80-100); Mean Platelet Volume 9.7 fl (7.4-10.4); Monocytes Absolute Auto 0.4 K/mm3 (0.1-0.6); Monocytes Percent Auto 6.1 % (2.6-8.5); Neutrophils Absolute Auto 3.6 K/mm3 (1.3-6.7); Neutrophils Percent Auto 51.6 % (45.5-73.1); Platelet Count Result 238 k/mm3 (150-375); Red Blood Count 4.09 M/mm3 (4.2-5.4); Red Cell Distribution Width 12.6 % (11.5-14.5); White Blood Count 6.9 K/mm3 (4.5-10.0)
[2023-11-19 15:43] LABS: Albumin Level 4.2 g/dL (3.5-5.1); Anion Gap 9 mmol/L (8-16); Blood Urea Nitrogen 19 mg/dL (7-17); Calcium 9.1 mg/dL (8.4-10.2); Carbon Dioxide 29 mmol/L (22-30); Chloride 103 mmol/L (98-107); Estimated Glomerular Filt Rate > 60; Glucose 113 mg/dL (65-110); Sodium 141 mmol/L (137-145)
[2023-11-19 15:46] LABS: INR 0.9; Prothrombin Time 12.3 Seconds (11.1-14.7)
[2023-11-19 15:47] LABS: Partial Thromboplastin Time 26.3 SECONDS (22.3-36.8)
[2023-11-19 15:49] LABS: Appearance Urine Clear (Clear); Bacteria Urine None Seen /hpf; Bilirubin Urine Negative (Negative); Blood Urine Negative (Negative); Color Urine Yellow (Yellow); Glucose Urine UA Negative (Negative); Ketones Urine Negative (Negative); Leukocyte Esterase Ur Trace LEU/UL (Negative); Nitrate Urine Negative (Negative); Non Pathogenic Casts 0-2; Protein Urine Negative (Negative); RBC Urine 0-2 /hpf (0-2); Specific Grav Ur 1.007 (1.001-1.035); Squamous Epithelial Cell Urine None seen /hpf (Few); Urobilinogen Urine 0.2 mg/dL (<2.0); WBC Urine 0-5 /hpf
[2023-11-19 15:56] LABS: Add Urine Microscopic? YES
[2023-11-19 17:26] LABS: Hemoglobin A1C 5.6 % (<5.7)
[2023-11-19 17:49] LABS: Urine Cotinine NEGATIVE
== END 2023-11-19 13:45 | disposition home or self-care (01) ==
LOC: ANHSURGERY 13:48
PROVIDERS: PCP Physician Assistant Medical; Visit Provider Orthopaedic Surgery
DX: M17.12 Unilateral primary osteoarthritis, left knee (principal); Z01.818 Encounter for other preprocedural examination
CPT/HCPCS: 80048; 80307; 81001; 82040; 83036; 85025; 85610; 85730; 86850; 86900; 86901; 87081

== ENCOUNTER 2023-12-02 04:00 | Day surgery (SDC) | payer MEDICARE, SELFPAY ==
[2023-11-19 14:16] VITALS: BP 123/59; PULSE 63; RESP 16; TEMP 37.2; O2SAT 100; BMI 22.9
--- NOTE | 2023-11-19 14:35 | PC.NURSE ---
Addendum entered by Alexsandra Beck RN 11/19/23 14:57: HOLD IBUPROFEN PER DR GAYTAN. PT RELAYS UNDERSTANDING. Original Note: Report to the Outpatient Waiting Room, entrance under the green pavilion located off [facility], at time _6:00AM on date __12/02/23 . Planned Procedure Time: __7:30AM . Time changes happen often and if your time is changed the preop area will call you the afternoon before. - You and your visitor will be asked to self-screen and do not enter if you have any COVID symptoms. - A mask is optional within the hospital at this time. Patients may have clear liquids (water, carbonated beverages, clear teas, apple juice) until 3 hours prior to surgery with a maximum of 20 ounces. - No food from midnight until time of surgery. Take the following medications with a SIP of water the morning of surgery: __ALPRAZOLAM NEEDED, AMOXICILLIN DO NOT STOP ANY OF YOUR OTHER PRESCRIPTION MEDICATIONS PRIOR TO SURGERY ?EXCEPT THE FOLLOWING Medications to discontinue per physician __HOLD ASPIRIN AND VITAMINS/SUPPLEMENTS PER DR GAYTAN Please no make-up, nail kazakh, hairspray, perfume, deodorant, or body powder the day of surgery. No jewelry (including any body piercings) or valuables the day of surgery, leave them at home. Please take a shower or bath the night before, or the morning of, surgery with an antibacterial soap. Wear comfortable, loose fitting clothing. Children are encouraged to wear pajamas. - Jewelry must be removed prior to entering the operating room. Rings and piercings that are not removed may be cut off. - The hospital will not accept responsibility for valuables. - Please leave all valuables, including medications, at home the day of surgery. If you are going home after surgery, a licensed crew truck driver must drive you home. - NO public transportation without another adult if you receive anesthesia. - We recommend that an adult stay with you for 24 hours following discharge. - We also recommend that you do not drive, make important decision, drink alcoholic beverages, or take any drugs that were not prescribed by your health care provider for at least 24 hours after your discharge time. Follow any additional instructions given to you from your surgeon. If you or anyone in your household have experienced Covid symptoms in the past week, please notify your surgeon or the nurse liaison at the phone number below for possible testing. Telephone instructions given to _PATIENT and asked if any additional questions and then verbalized understanding. Patient advised to call surgeon office or pre surgery nurse liaison [phone] if any additional questions.
--- NOTE | 2023-12-01 13:47 | WPDANESEPPF ---
Anes - Initial Pre Proc Eval Procedure: Operation Date: 12/02/23 07:30 Proposed Procedures p Left Total Knee Arthroplasty - Mikey Begum MD Date/Time: 12/01/23 13:47 Surgeon: Mikey Begum MD Pre Op Diagnosis: Left Knee DJD Patient Data Age: 68 Gender: F Height: 1.56 m Weight: 56 kg Last Vital Signs Temp 37.2 C 11/19/23 14:16 Pulse 63 11/19/23 14:16 Resp 16 11/19/23 14:16 BP 123/59 L 11/19/23 14:16 Pulse Ox 100 11/19/23 14:16 O2 Del Method Room Air 11/19/23 14:16 Allergies Allergy/AdvReac Type Severity Reaction Status Date / Time No Known Allergies Allergy Verified 12/02/23 06:10 Home Medications Medication Instructions Recorded Confirmed Type aspirin 81 mg tablet,delayed 81 mg PO QAM 08/06/20 12/02/23 History release (Magdalena Low Dose Aspirin) calcium carbonate 600 mg calcium 600 mg PO BID 08/06/20 12/02/23 History (1,500 mg) tablet (Calcium) oukominm-ssii-vojg 8 mg-folic 400 1 tablet PO QAM 08/06/20 12/02/23 History mcg-K 50 mcg-lutein 300 mcg tablet (Multivitamin Women 50 Plus) alprazolam 0.25 mg tablet 0.25 mg PO TID PRN anxiety #90 tabs 07/08/23 12/02/23 Rx amoxicillin 875 mg tablet 875 mg PO BID 11/19/23 12/02/23 History biotin 2,500 mcg capsule 2,500 mcg PO BID 11/19/23 12/02/23 History ibuprofen 200 mg capsule 400 mg PO Q6H PRN Pain 11/19/23 12/02/23 History losartan 50 mg tablet 50 mg PO QAM 11/19/23 12/02/23 History omega 4-vme-ktg-fish oil 1,000 mg 1 cap PO DAILY 11/19/23 12/02/23 History (120 mg-180 mg) capsule (Fish Oil) chlorhexidine gluconate 4 % 1 applic topical DAILY #237 mL 11/24/23 Rx topical liquid (Hibiclens) Patient hx anesthesia problems: post op nausea/vomiting Family hx anesthesia problems: none Results Review: All pre-operative results and documents have been reviewed as part of the pre-operative evaluation. [facility] Past Medical History Medical History (Updated 11/20/23 @ 15:06 by ALFONSO Bruce) Anxiety Chronic pain of both knees Depression DJD (degenerative joint disease) of knee Hypertension Insomnia Left knee DJD Nausea after anesthesia Osteoarthritis Other chronic pain Pain in left knee Postoperative nausea and vomiting Primary osteoarthritis of left knee Primary osteoarthritis of right knee Right knee pain Vascular malformation Surgical History Surgical History History of bladder suspension procedure History of hysterectomy History of total right knee replacement Family History Family History Father Cancer Heart disease Other Diabetes mellitus Family history of arthritis Family history of malignant neoplasm Hypertension Social History Social History Smoking status: Never smoker Alcohol intake: never Substance use: never Substance use type: does not use Lack of Transportation: No Lack of Food: Never True Current Housing: I Have Housing Concerned About Future Housing: No Difficulty Paying Gas/Electric Bills: No Difficulty Paying for Meds: No Currently Unemployed: No Difficulty w/ Childcare or Family Care: No Living arrangements: alone Occupation/Education: retired Gender identity (if verbalized by the patient): Female Sexual Orientation (if Verbalized by the Patient): Straight or Heterosexual Spiritual care concerns: No Anes - Eval Final PreProcedure Day of Procedure 12/01/23 13:47 Patient weight: normal Heart: regular rate and rhythm Lungs: clear to auscultation Airway: Mallampati scale class II Neurological: alert and oriented Last oral intake: >/= 8 hours ASA classification: II Emergent: no Anesthetic plan: proceed Anesthesia type and monitoring: general LMA and standard monitoring Results Review: All pre-operative results and documents have been reviewed as part of the pre-ope
[2023-12-02] VITALS (14 sets, daily range): BP systolic 103–179; BP diastolic 53–71; PULSE 57–77; RESP 12–20; TEMP 35.6–36.6; O2SAT 97–100
--- NOTE | ~2023-12-02 | XR_ITS ---
EXAMINATION: [id number] DATE: 12/02/2023 10:10 GLOVE EXAMINER INDICATION: Left total knee arthroplasty TECHNIQUE: 2 views left knee FINDINGS: There is a total knee arthroplasty in expected position. Subcutaneous gas wit left h flui d and air in the joint and overlying skin madhu are consistent with recent surgery. No evidence of periprosthetic fracture. IMPRESSION: 1. Recent left total knee arthroplasty. Reviewed, dictated and finalized at location B. E EXAMINER
[2023-12-02] MEDS: ACETAMINOPHEN 500 MG TABLET 1000 MG PO (06:20)
[2023-12-02] MEDS: LACTATED RINGERS 1,000 ML 30 ML IV CONT ×2 (06:30→09:46)
[2023-12-02] MEDS: TRANEXAMIC ACID 1,000MG/ISO100 1,000 MG/100 ML BAG 200 MG IVPB (07:09)
--- NOTE | 2023-12-02 07:16 | WPDHPUPDATE1 ---
History and Physical Update Update Date/Time: 12/02/23 07:16 History and Physical has been reviewed, including an updated exam of the patient. There are NO changes in the patient's condition. Risks, benefits, and alternatives have been discussed and questions answered. Patient agrees to proceed with procedure.
--- NOTE | 2023-12-02 07:18 | WPDANESPNB ---
Anes - Peripheral Nerve Block Date/Time: 12/02/23 07:18 I have discussed with the patient/family/POA the placement of a peripheral nerve block for post-operative pain management, including associated risks, benefits, complications, and side effects. Alternative methods of post-operative analgesia were detailed. Questions were solicited and answers provided to the satisfaction of the patient/family/POA. Time-Out: A pre-procedural Time-Out was completed immediately before starting the procedure and confirmed: Patient Identification, Site, Procedure, Patient Position and the Availability of Requisite Equipment. Clinical Indications: Acute post-operative pain management requested by the operative surgeon. Nerve Block Insertion Note Anes-nerve block: adductor canal left Patient position: supine Skin prep: chlorhexidine Needle: 22 gauge, stimulating, insulated echogenic needle. Needle length: 80 mm Technique: ultrasound Injectate: bupivacaine 0.5% with epi 5 mcg/ml (30cc - no epi) Observations: tolerated well Complications: none Procedure start time:: 723 Procedure end time:: 727
[2023-12-02] MEDS: SCOPOLAMINE 1 MG PATCH 1 PATCH TRANSDERM (07:26)
[2023-12-02] MEDS: ceFAZolin 2 GM/D5W 50 ML 2 GM/50 ML BAG IVPB ×3 (07:33→23:45)
[2023-12-02] MEDS: GENTAMICIN BONE CEMENT REFOBACIN 1 EACH TOPICAL (08:52)
[2023-12-02] MEDS: TRANEXAMIC ACID 1,000 MG/10 ML AMPUL 1000 MG IV PUSH (09:02)
--- NOTE | 2023-12-02 09:45 | W.PM.PROC2 ---
Procedure Note - Detailed Date of Procedure 12/02/23 Pre-op Diagnosis Left Knee DJD Post-op Diagnosis Same Procedure Performed L TKA Surgeon Mikey Begum MD Anesthesia General Description of Procedure THE LEFT KNEE WAS PREPPED AND DRAPED IN THE STERILE FASHION. A MIDLINE SKIN INCISION WAS MADE. A MEDIAL PARAPATELLAR ARTHROTOMY WAS MADE. THE PATELLA WAS EVERTED. THERE WAS TRICOMPARTMENT DJD. THERE WAS MINIMAL PATELLA DJD. AN INTRAMEDULLARY PINA WAS PLACED IN THE FEMUR. A DISTAL FEMORAL CUT WAS MADE IN 5 DEGREES OF VALGUS REMOVING APPROXIMATELY 9 MM OF BONE FROM THE DISTAL FEMUR. THE FEMUR WAS SIZED TO 60. A 60 FEMORAL CUTTING BLOCK WAS PLACED IN 3 DEGREES OF EXTERNAL ROTATION AND IN ALIGNMENT WITH ROMEO'S LINE AND THE TRANSEPICONDYLAR AXIS. ANTERIOR POSTERIOR AND CHAMFER CUTS WERE MADE. THE CUTS WERE EXCELLENT. NEXT AN INTRAMEDULLARY CUTTING GUIDE WAS PLACED IN THE TIBIA. A TRANS TIBIAL CUT WAS MADE ALONG THE LONG AXIS OF THE TIBIA. APPROXIMATELY 10 MM OF BONE WAS REMOVED FROM THE HIGH SIDE OF THE TIBIA. THE TIBIA WAS THEN PLANED TO A SMOOTH SURFACE. POSTERIOR FEMORAL OSTEOPHYTES WERE REMOVED FROM THE FEMORAL CONDYLES. A 67 TIBIAL TRIAL WAS PLACED IN ALIGNMENT WITH THE 1/3 MEDIAL ASPECT OF THE TIBIAL TUBERCLE. THEN A 65 FEMORAL TRIAL COMPONENT WAS PLACED. BOTH HAD EXCELLENT FITS. EVENTUALLY A 10 MM CR POLYETHYLENE TRIAL COMPONENT WAS PLACED. THE KNEE WAS TAKEN THROUGH A RANGE OF MOTION. THE KNEE CAME OUT TO FULL EXTENSION. THERE WAS NO ABNORMAL TILT TO THE PATELLA. THERE WAS GOOD A/P AND VARUS/VALGUS STABILITY. THERE WAS NO EXCESSIVE ROLL BACK WITH FLEXION. THE TRIAL COMPONENTS WERE REMOVED. THEN A 60 FEMORAL COMPONENT AND 67 TIBIAL COMPONENT WITH A 10 CR POLYETHYLENE COMPONENT WERE CEMENTED INTO PLACE. ONCE THE CEMENT WAS HARD THE KNEE WAS TAKEN THROUGH A ROM AGAIN AND FOUND TO BE STABLE WITH NO PATELLA TILT NO EXCESSIVE ROLL BACK WITH FLEXION AND GOOD STABILITY WITH COMPLETE AND FULL EXTENSION. THE KNEE WAS IRRIGATED WITH STERILE BETADINE AND WATER FOR ABOUT 3 MINUTES. THE BLEEDERS WERE CAUTERIZED. THE ARTHROTOMY WAS REPAIRED WITH NUMBER 1 VICRYL. THE SUB CUTANEOUS LAYER WITH 2-0 VICRYL AND THE SKIN WITH ERIN. THE WOUND WAS WASHED AND A STERILE DRESSING WAS APPLIED. PATIENT WAS EXTUBATED. Estimated Blood Loss 100 Pathology None sent Complications No immediate complications Condition Stable Disposition PACU
[2023-12-02] MEDS: fentaNYL CITRATE INJ (*CRX) 100 MCG/2 ML VIAL 25 MCG IV PUSH ×2 (10:47→10:49)
--- NOTE | 2023-12-02 12:01 | ADMGEN ---
This patient, Neela Montalvo, was admitted to 3 [facility] Surg Room 312-01. Patient/family oriented to hospital policies and general routines including ID bracelet, bed and alarms, visiting hours, pain management, procedures, bathroom and other care routines, personal items, smoking policy, room service/diet, and visiting hours. Information on how to activate the Rapid Response Team has been discussed. Patient/Family are encouraged to report perceived risks to care and to ask questions if they do not understand what they are told or what they should do.
[2023-12-02] MEDS: SENNA/DOCUSATE SODIUM TABLET 2 TAB PO (13:17)
[2023-12-02] MEDS: oxyCODONE/ACETAMINOPHEN (*CRX) 5-325 MG TABLET 1 TABLET PO (13:17)
[2023-12-02] MEDS: FAMOTIDINE 20 MG TABLET PO ×2 (13:17→21:14)
[2023-12-02] MEDS: ASPIRIN 325 MG ENTERIC TABLET PO ×2 (13:17→21:14)
[2023-12-02] MEDS: LOSARTAN POTASSIUM 50 MG TABLET PO (13:17)
[2023-12-02] MEDS: polyethylene glycoL 3350 17 GM POWD.PACK PO (13:18)
[2023-12-02] MEDS: KETOROLAC 15 MG/ML VIAL (*BKC) IV PUSH ×3 (13:18→23:44)
[2023-12-02] MEDS: SODIUM CHLORIDE 0.9% IV 1,000 ML 125 ML IV CONT (13:38)
[2023-12-02] MEDS: ONDANSETRON INJ 4 MG/2 ML VIAL IV PUSH (16:13)
[2023-12-03 00:46] VITALS: BP 124/59; PULSE 65; RESP 18; TEMP 36.6; O2SAT 97
[2023-12-03] MEDS: oxyCODONE/ACETAMINOPHEN (*CRX) 5-325 MG TABLET 1 TABLET PO (04:04)
[2023-12-03 05:59] VITALS: BP 111/55; PULSE 63; RESP 18; TEMP 36.4; O2SAT 97
[2023-12-03] MEDS: KETOROLAC 15 MG/ML VIAL (*BKC) IV PUSH ×2 (06:08→12:08)
[2023-12-03 06:57] LABS: Basophils Percent Auto 0.2 % (0.2-1.2); Eosinophils Percent Auto 0.3 % (0-4.4); Hematocrit 30.3 % (37.0-47.0); Hemoglobin 9.9 g/dL (12.0-15.0); Immature Granulocyte Absolute 0.06 K/mm3 (0.00-0.031); Immature Granulocyte Percent A 0.5 % (0-0.5); Lymphocytes Absolute Auto 2.72 K/mm3 (0.9-3.2); Lymphocytes Percent Auto 22.3 % (18.3-44.2); Mean Corpuscular HGB Conc 32.7 g/dl (32-36); Mean Corpuscular Hemoglobin 31.6 pg (26-34); Mean Corpuscular Volume 96.8 fl (80-100); Mean Platelet Volume 10.2 fl (7.4-10.4); Monocytes Absolute Auto 0.7 K/mm3 (0.1-0.6); Monocytes Percent Auto 6.1 % (2.6-8.5); Neutrophils Absolute Auto 8.6 K/mm3 (1.3-6.7); Neutrophils Percent Auto 70.6 % (45.5-73.1); Platelet Count Result 185 k/mm3 (150-375); Red Blood Count 3.13 M/mm3 (4.2-5.4); Red Cell Distribution Width 12.6 % (11.5-14.5); White Blood Count 12.2 K/mm3 (4.5-10.0)
[2023-12-03 07:14] LABS: Anion Gap 6 mmol/L (8-16); Blood Urea Nitrogen 14 mg/dL (7-17); Calcium 8.5 mg/dL (8.4-10.2); Carbon Dioxide 26 mmol/L (22-30); Chloride 98 mmol/L (98-107); Estimated CRCL calculation 36 ml/min; Estimated Glomerular Filt Rate 55; Glucose 95 mg/dL (65-110); Potassium 4.5 mmol/L (3.4-5.0); Sodium 130 mmol/L (137-145)
[2023-12-03] MEDS: ceFAZolin 2 GM/D5W 50 ML 2 GM/50 ML BAG IVPB (08:42)
[2023-12-03] MEDS: SENNA/DOCUSATE SODIUM TABLET 2 TAB PO ×2 (08:42→16:25)
[2023-12-03] MEDS: ASPIRIN 325 MG ENTERIC TABLET PO (08:42)
[2023-12-03] MEDS: FAMOTIDINE 20 MG TABLET PO (08:42)
[2023-12-03] MEDS: polyethylene glycoL 3350 17 GM POWD.PACK PO (08:42)
[2023-12-03] MEDS: ALPRAZolam (*CRX) 0.25 MG TABLET PO (08:42)
[2023-12-03] MEDS: LOSARTAN POTASSIUM 50 MG TABLET PO (08:42)
[2023-12-03 08:46] VITALS: BP 121/54; PULSE 63; TEMP 36.7; O2SAT 99
[2023-12-03 09:20] VITALS: O2SAT 97
--- NOTE | 2023-12-03 09:26 | PM.PNORT ---
Progress Note: A&P Assessment and Plan (1) S/P total knee arthroplasty: Qualifiers: Laterality: left Qualified Code(s): Z96.652 - Presence of left artificial knee joint Code(s): Z96.659 - Presence of unspecified artificial knee joint Status: Acute Assessment and Plan: POD #1 : Left TKA Continue PT/OT. WBAT. Walker. HIGH FALL RISK. Continue pain control. Ice Knee. Protect skin. DVT prophylaxis with Aspirin. SCDs. Incentive Spirometry Use reviewed. Monitor Dressing. Change prior to discharge. Bowel Regimen. Dispo: Home with Home Health pending progress with PT/OT Plan Reviewed history, exam, radiographs and current labs with attending MD and covering surgeon, Dr. Begum, who agrees with current plan as indicated above. No further recommendations from Dr. Begum at this time. Subjective Subjective Date/Time Seen: 12/03/23 09:26 Post Op day: 1 Interval history: POD #1: Left TKA Patient doing well. Pain well controlled. Working well with PT/OT. Hopeful for discharge home today. Review of Systems Review of Systems: All systems reviewed & are unremarkable except as noted in HPI and below Constitutional: Constitutional: Denies fever(s) and Denies headache(s) ENT: Denies headache(s) Cardiovascular: Cardiovascular: Denies chest pain, Denies diaphoresis, Denies palpitations and Denies dyspnea Respiratory: Respiratory: Denies dyspnea Gastrointestinal: Gastrointestinal: Denies abdominal pain, Denies constipation, Denies nausea and Denies vomiting Genitourinary: Genitourinary: Reports nocturia and Denies dysuria Musculoskeletal: Musculoskeletal: Reports arthralgias (Left Knee ), Reports joint swelling (Left Knee ) and Reports limited range of motion (ROM limited due to recent surgical intervention LEFT Knee ) Neurologic: Denies headache(s) Endocrine: Endocrine: Denies palpitations Exam Const: General: comfortable and no acute distress Resp: Effort & Inspection: normal respiratory effort Cardio: Rate: regular rate Rhythm: regular rhythm GI: GI Palp: Yes Soft to palpation, No Tenderness to palpation present (GI) and No Guarding due to palpation present (GI) Skin: General skin exam: wounds noted (see extremity assessment ) Wounds: wounds noted (see extremity assessment ) Neuro: Cognition (Neuro): normal cognition Other: NV intact aside from block. Moves toes. Sensation intact to light touch. +ankle dorsiflexion/plantarflexion. Extrem: Left lower extremity: normal to inspection, normal capillary refill, knee Details: tenderness (diffuse ) Location: of the patella, swelling (moderate consistent to recent surgery ), abnormal ROM (limited due to recent surgery ) Details: pain with active ROM and pain with passive ROM and ecchymosis (as expected with recent surgery. NO hematoma. ), lower leg (Negative Mando's Sign ), ankle (+ankle dorsiflexion/plantarflexion ) Details: normal to inspection, no edema and normal ROM; no tenderness and no swelling and foot Details: normal capillary refill, toes with normal ROM, vascular exam Details: dorsalis pedis pulse present and motor-sensory exam light-touch normal; no tenderness Other: Incision left TKA dressing c/d/i. No hematoma. No signs of infection. No wound dehiscence. Psych: Mental Status: mental status grossly normal Objective Data Vital Signs Vital Signs: Vital Signs - 24 hr 12/02/23 09:46 12/02/23 10:00 12/02/23 10:15 Temperature 36.2 C L Pulse Rate 67 73 65 Respiratory Rate 14 14 12 Blood Pressure 106/58 L 121/62 113/64 Pulse Oximetry 100 100 100 Oxygen Delivery Simple Face Mask Simple Face Mask Room Air Oxygen Flow Rate 8 8 12/02/23 10:30 12/02/23 10:45 12/02/23 11:00 Temperature Pulse Rate 75 62 59 L Respiratory Rate 14 20 12 Blood Pressure 117/62 114/59 L 115/62 Pulse Oximetry 97 100 99 Oxygen Delivery Room Air Room Air Room Air Oxygen Flow Rate 12/02/23 11:25 12/02/23 11:40
--- NOTE | 2023-12-03 09:36 | PM.DS ---
DS: Admitting Diagnosis Discharge Date 12/03/23 Admitting Diagnosis Left Knee DJD DS: Discharge Diagnosis Discharge Diagnosis (1) S/P total knee arthroplasty: Qualifiers: Laterality: left Qualified Code(s): Z96.652 - Presence of left artificial knee joint Code(s): Z96.659 - Presence of unspecified artificial knee joint Status: Acute Assessment and Plan: POD #1 : Left TKA Continue PT/OT. WBAT. Walker. HIGH FALL RISK. Continue pain control. Ice Knee. Protect skin. DVT prophylaxis with Aspirin. SCDs. Incentive Spirometry Use reviewed. Monitor Dressing. Change prior to discharge. Bowel Regimen. Dispo: Home with Home Health pending progress with PT/OT Plan Reviewed history, exam, radiographs and current labs with attending MD and covering surgeon, Dr. Begum, who agrees with current plan as indicated above. No further recommendations from Dr. Begum at this time. DS: Summary Hospital Course Reason for hospitalization: Left TKA Hospital Course: 68 year old female admitted s/p Left TKA for postoperative medical management, pain control and mobilization with PT/OT. Patient progressed well with PT/OT. Pain and vitals remained stable throughout. The patient has been cleared to be discharged home with home health at this time. All discharge care instructions reviewed at depth. New medications reviewed. Follow up planned for 3 weeks in the outpatient orthopedic clinic with Dr. Begum. Dr. Begum in agreement with safe discharge at this time. Status at Discharge Functional status at discharge: uses cane/walker Overall status at discharge: patient is progressing back to baseline Time Spent with Patient Time attestation: Total time spent providing and/or coordinating discharge services: Exam Const: General: comfortable and no acute distress Resp: Effort & Inspection: normal respiratory effort Cardio: Rate: regular rate Rhythm: regular rhythm Skin: General skin exam: wounds noted (see extremity assessment ) Wounds: wounds noted (see extremity assessment ) Neuro: Cognition (Neuro): normal cognition Other: NV intact aside from block. Moves toes. Sensation intact to light touch. +ankle dorsiflexion/plantarflexion. Extrem: Left lower extremity: normal to inspection, normal capillary refill, knee Details: tenderness (diffuse ) Location: of the patella, swelling (moderate consistent to recent surgery ), abnormal ROM (limited due to recent surgery ) Details: pain with active ROM and pain with passive ROM and ecchymosis (as expected with recent surgery. NO hematoma. ), lower leg (Negative Mando's Sign ), ankle (+ankle dorsiflexion/plantarflexion ) Details: normal to inspection, no edema and normal ROM; no tenderness and no swelling and foot Details: normal capillary refill, toes with normal ROM, vascular exam Details: dorsalis pedis pulse present and motor-sensory exam light-touch normal; no tenderness Other: Incision left TKA dressing c/d/i. No hematoma. No signs of infection. No wound dehiscence. Psych: Mental Status: mental status grossly normal DS: Data Data Completed and Pending Labs on day of discharge: Labs from last 24 hours 12/03/23 06:26 WBC 12.2 H RBC 3.13 L Hgb 9.9 L D Hct 30.3 L MCV 96.8 MCH 31.6 MCHC 32.7 RDW 12.6 Plt Count 185 MPV 10.2 Immature Gran % (Auto) 0.5 Neut % (Auto) 70.6 Lymph % (Auto) 22.3 [place] % (Auto) 6.1 Eos % (Auto) 0.3 Baso % (Auto) 0.2 Lymph # (Auto) 2.72 [place] # (Auto) 0.7 H Eos # (Auto) 0.0 Baso # (Auto) 0.0 Abs Immat Gran (auto) 0.06 H Absolute Neuts (auto) 8.6 H Absolute Nucleated RBC 0.0 Nucleated RBC % 0.0 Sodium 130 L Potassium 4.5 Chloride 98 Carbon Dioxide 26 Anion Gap 6 L BUN 14 D Creatinine 1.00 Estim Creat Clear Calc 36 Estimated GFR 55 L Glucose 95 Calcium 8.5 Discharge Plan Discharge Patient Disposition: Home Health Service Discharge Instructions: Post Op
[2023-12-03] MEDS: ONDANSETRON INJ 4 MG/2 ML VIAL IV PUSH (09:54)
[2023-12-03 12:46] VITALS: BP 127/59; PULSE 65; RESP 20; TEMP 36.7; O2SAT 99
--- NOTE | 2023-12-03 14:30 | PC.NURSE ---
Dr. Begum's office called to ask about patient's discharge. Pamela stated, I will notify him when he's out of surgery.
== END 2023-12-03 16:55 | disposition home health service (06) ==
LOC: ANHSURGERY 05:53 → ANH3MEDSUR 11:02
PROVIDERS: PCP Physician Assistant Medical; Visit Provider Orthopaedic Surgery
PROC: (CPT 27447; principal; 2023-12-02 07:30)
DX: M17.12 Unilateral primary osteoarthritis, left knee (principal); G89.18 Other acute postprocedural pain; I10 Essential (primary) hypertension; F41.9 Anxiety disorder, unspecified; F32.A Depression, unspecified; Z79.82 Long term (current) use of aspirin
CPT/HCPCS: 27447; 64447; 36415; 73560; 80048; 80307; 81001; 82040; 83036; 85025; 85610; 85730; 86850; 86900; 86901; 87081; 97110; 97116; 97161; 97165; 97530; 97535; A9270; C1713; C1776; J0171; J0690; J1100; J1170; J1200; J1596; J1885; J2250; J2270; J2371; J2405; J2704; J2795; J3010; J3370; J7030; J7120

== ENCOUNTER 2024-02-10 13:45 | Outpatient (RCR) | payer MEDICARE, SELFPAY ==
--- NOTE | 2024-01-04 17:16 | BUPTOPEVAL1 ---
Assessment and note entered by Carissa Leyva, PT Evaluation Information Assessment Status Evaluation Diagnosis Presence of artificial knee joint (left) pain in left knee, gait abnormality weakness, stiffness left knee Onset 12/02/23 Subjective Information Is able to walk without her walker. Is also walking her block on nice days last 3-4 days. Pt reports she was told to take a pain pill ( prescription) before therapy evaluation and did so . States she doesn't remember what kind of pill it is but will find out and bring information on next visit Reported Pain Level Pain Score 0: Self Report Assessment PT Clinical Summary Pt is approx 4.5 week post-op L TKA. Pt demos Active ROM 8-104 and Passive range 8-104 demonstrating a mild extensor lag and she postures with slight knee flexion in standing maintaining this through her gait pattern. She has mildly tight calves as well. Swelling is minimal and localized to joint area with no signs of infection at this time. There is mild/moderately reduced tissue mobility over the patella, and around the incision. Pt will greatly benefit from physical therapy to address these deficits, and return to her PLOF. Plan of Care Interventions Electrical Stimulation,Gait Training,Hot Pack/Cold Pack,Manual Therapy,Neuro Re-education, Therapeutic Activities,Therapeutic Exercise,Self- Care/Home Management PT Services Indicated Yes These treatments will address the objective and functional deficits as defined above. The patient will be advanced safely and appropriately in order for the patient to progress towards his/her prior level of function. Additional exercises will be introduced and as well as a comprehensive home exercise program upon discharge, if needed, ?to ensure carryover of functional gains achieved in the clinic. This treatment plan has been reviewed and agreement upon by the patient.
--- NOTE | 2024-01-04 17:17 | OPREHPOC ---
Outpatient Therapy Plan of Care This is a Multidisciplinary Plan of Care that may contain components documented by all disciplines (PT, OT, and ST.) PT Problem 1 PT Problem #1 Knowledge Deficit PT Goal 1 Goal Pt will be independent in HEP Pt will verbalize understanding of diagnosis and prognosis Target Visit 8 PT Problem 2 PT Problem #2 Impaired Range of Motion PT Goal 1 Goal Pt will demo PROM (L)knee 0-130 Target Visit 8 PT Goal 2 Goal Pt will demo AROM (L)knee 0-130 Target Visit 16 PT Problem 3 PT Problem #3 Impaired Strength PT Goal 1 Goal Will demo left quad strength 4/5 without extensor lag Target Visit 8 PT Problem 4 PT Problem #4 Pain PT Goal 1 Goal Pt will report greatest pain level at 3/10 or less to improve ADLs and activities Target Visit 8 PT Goal 2 Goal Pt will report resolution of pain to return to PLOF Target Visit 16
--- NOTE | 2024-02-10 16:23 | PTOPPROG ---
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 Is working on her stretching in standing Self-perceived improvement: 70% Goes up and down steps all day long without issues. 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 Pt has not met all of her therapy goals however she is highly functional, has little pain and what pain she does have may continue to resolve with her HEP. Discussed with patient options to continue therapy or attempt independent continuation of exercises. Pt opts to attempt independent continued HEP, however as she continues to have lack of full extension which effects her gait and comfort, we will leave this plan of care open for 30 days to allow patient to test independent progression but allow return easily if is needed. Plan of Care Interventions Electrical Stimulation,Gait Training,Hot Pack/Cold Pack,Manual Therapy,Neuro Re-education, Therapeutic Activities,Therapeutic Exercise,Self- Care/Home Management PT Services Indicated Yes Treatment Frequency and 1-2x weekly x 12 visits Duration These treatments will address the objective and functional deficits as defined above. The patient will be advanced safely and appropriately in order for the patient to progress towards his/her prior level of function. Additional exercises will be introduced and as well as a comprehensive home exercise program upon discharge, if needed, ?to ensure carryover of functional gains achieved in the clinic. This treatment plan has been reviewed and agreement upon by the patient.
--- NOTE | 2024-03-11 12:47 | PTOPDC ---
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 Is working on her stretching in standing Self-perceived improvement: 70% Goes up and down steps all day long without issues. Does notice with going down, holds bannister and wall Assessment PT Clinical Summary As of last reevaluation pt states she was doing well and improving in her function. It has been 30 days and calling patient to inquire how she is doing, she states she is doing well and can discharged from plan of care. Thus will close case for pt knee replacement. Plan of Care PT Services Indicated No
== END 2024-03-22 12:45 | disposition home or self-care (01) ==
LOC: ANHHIPT 13:45
PROVIDERS: PCP Physician Assistant Medical; Visit Provider Orthopaedic Surgery
DX: Z47.1 Aftercare following joint replacement surgery (principal); Z96.652 Presence of left artificial knee joint
CPT/HCPCS: 97014; 97110; 97112; 97116; 97140; 97750; G0283

== ENCOUNTER 2024-07-08 12:45 | Outpatient (CLI) | payer MEDICARE, SELFPAY ==
--- NOTE | ~2024-07-08 | DEXA_ITS ---
Bone Density Report Name: SANDRA NEUMANN Age: 69 Sex: Female Ethnicity: White Date of : 1955 Indication: postmenopausal; screening for osteoporosis; height loss; hysterectomy; Referring Provider: ZACK GOMEZ Study: Bone densitometry was performed. Exam Date: July 08, 2024 Accession number: [id number] Bone Density: Region BMD T-score Z-score Classification AP Spine(L1-L4) 0.638 -3.7 -1.6 Osteoporosis Femoral Neck (Left) 0.635 -1.9 -0.1 Osteopenia Total Hip (Left) 0.667 -2.3 -0.7 Osteopenia Femoral Neck (Right) 0.560 -2.6 -0.8 Osteoporosis Total Hip (Right) 0.639 -2.5 -1.0 Osteoporosis Total Hip Mean 0.653 -2.4 -0.9 Osteopenia World Health Organization criteria for BMD impression classify patients as: Normal (T-score at or above -1.0), Osteopenia (T-score between -1.0 and -2.5), or Osteoporosis (T-score at or below -2.5). 10-year Fracture Risk: FRAX not reported because: Some T-score for Spine Total or Hip Total or Femoral Neck at or below -2.5 Clinical Information Provided by Patient: Has used the following medications: Calcium Has the following medical conditions: Hysterectomy Patient maximum height was 62 Menopause Age: 44 Does not regularly consume dairy products Onset of menses at age 12 Number of children 3 Impression: The patient has osteoporosis, based on the Total Spine T-score. Discussion: INCREASED RISK OF FRACTURE. BONE DENSITY IS UNDESIRABLY LOW AT ONE OR MORE SKELETAL SITES, CONSISTENT WITH POSTMENOPAUSAL OSTEOPOROSIS. This patient's lowest T-score meets the World Health Organization's (WHO) criteria for osteoporosis at one or more sites (T-score -2.5 or below). In untreated patients, the risk of osteoporotic fracture increases approximately two-fold for each 1.0 SD decrease in T-score. Low bone density is not the only risk factor for fracture; also consider factors such as patient's age, frailty or poor health, risk of falling, risk of injury, previous osteoporotic fracture, family history of osteoporosis, cigarette smoking, low body weight, etc. Not everyone with low bone mineral density has osteoporosis; osteomalacia and other metabolic bone disorders should also be considered. Patients who have osteoporosis should be evaluated for specific diseases and conditions (secondary causes) that may cause or contribute to bone loss. The [place] [employer]ocr[employer] (AACE) and National Osteoporosis Foundation (NOF) recommend pharmacologic intervention for all postmenopausal women whose T-score is in this range. The patient should follow a healthful lifestyle (good nutrition with adequate calcium and vitamin D, and appropriate weight-bearing exercise). Follow-Up: Consider a repeat BMD and Vertebral Fracture Assessment (VFA) exam in 2 years or sooner if me
== END 2024-07-08 12:46 | disposition home or self-care (01) ==
PROVIDERS: PCP Physician Assistant Medical; Visit Provider Physician Assistant Medical
DX: Z78.0 Asymptomatic menopausal state (principal); M85.89 Other specified disorders of bone density and structure, multiple sites; M81.0 Age-related osteoporosis without current pathological fracture
CPT/HCPCS: 77080

== ENCOUNTER 2024-08-30 07:20 | Outpatient (CLI) | payer MEDICARE, SELFPAY ==
--- NOTE | ~2024-08-30 | MM_ITS ---
EXAMINATION: MM screening [facility] BI w joss HISTORY: Screening TECHNIQUE: Craniocaudal and mediolateral oblique 3-D tomosynthesis images were obtained and synthetic 2-D images were generated. CAD analysis was submitted and interpreted. COMPARISON: Comparison to multiple prior studies sequentially, with oldest reviewed study dated 04/2017. BREAST PARENCHYMAL COMPOSITION: Not dense: There are scattered areas of fibroglandular density. FINDINGS: There is no evidence of suspicious mass, calcification, or architectural distortion to sugg est malignancy in either breast. There has been no suspicious interval change. IMPRESSION: 1. No mammographic evidence of malignancy. 2. Recommend routine screening mammography in one year. BI-RADS Category 1: Negative Reviewed, dictated and finalized at location B.
== END 2024-08-30 07:21 | disposition home or self-care (01) ==
LOC: ANHIMG 07:28
PROVIDERS: PCP Physician Assistant Medical; Visit Provider Physician Assistant Medical
DX: Z12.31 Encounter for screening mammogram for malignant neoplasm of breast (principal)
CPT/HCPCS: 77063; 77067

== ENCOUNTER 2025-09-04 10:15 | Outpatient (CLI) | payer MEDICARE, SELFPAY ==
--- NOTE | ~2025-09-04 | MM_ITS ---
EXAMINATION: MM screening [facility] BI w joss HISTORY: Screening TECHNIQUE: Craniocaudal and mediolateral oblique 3-D tomosynthesis images were obtained and synthetic 2-D images were generated. CAD analysis was submitted and interpreted. COMPARISON: Comparison to multiple prior studies sequentially, with oldest reviewed study dated 01/15/2018. BREAST PARENCHYMAL COMPOSITION: Not dense: There are scattered areas of fibroglandular density. FINDINGS: There is no evidence of suspicious mass, calcification, or architectural distortion to suggest malignancy in either breast. There has been no suspicious interval change. IMPRESSION: 1. No mammographic evidence of malignancy. 2. Recommend routine screening mammography in one year. BI-RADS Category 1: Negative Reviewed, dictated and finalized at location B.
--- OUTSIDE RECORDS SUMMARY | 2025-09-04 11:34 | XMS_ITS | Clinical Summary ---
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 Name Role Phone Unavailable Primary Care Provider Unavailabl e Social History Tobacco Use Types Packs/Day Years Used Date Smoking Tobacco: Never Assessed Comments Unknown Sex and Gender Information Value Date Recorded Sex Assigned at Not on file Legal Sex Female 9:29 PM CDT Gender Identity Not on file Sexual Orientation Not on file Plan of Treatment Health Maintenance Due Date Last Done Comments Colorectal Cancer Screening Colonoscopy (10 Years) 1955 Hepatitis C 01/15/1972 DTaP, Tdap and Td Vaccines ( 1 - Tdap) 1973 Mammogram Screening 1994 Pneumococcal Vaccine: 50+ Ye ars (1 of 1 - PCV) 01/15/2004 Zoster Vaccines (1 of 2) 01/15/2004 Dexa Scan (General) 2019 COVID-19 Vaccine ( - 2024-2 6 season) 2025 Influenza Adult (#1) 2025 RSV Immunization or 60+ Years (1 - 1-dose 75+ series) 2029 Hepatitis A Vaccines Aged Out No long er eligible based on patient's age to complete this topic Meningococcal B Vaccine Aged Out No l onger eligible based on patient's age to complete this topic Meningococcal Vaccine Aged Out No joycelyn ever eligible based on patient's age to complete this topic RSV Immunizations Under 20 Months Aged Out No longer eligible based on patient's age to complete this topic
== END 2025-09-04 10:16 | disposition home or self-care (01) ==
LOC: ANHFOHIMG 10:17
PROVIDERS: PCP Physician Assistant Medical; Visit Provider Physician Assistant Medical
DX: Z12.31 Encounter for screening mammogram for malignant neoplasm of breast (principal)
CPT/HCPCS: 77063; 77067